=== PATIENT | female | born 1950 | race Caucasian/White ===

== ENCOUNTER 2024-02-02 05:55 | Emergency (ER) | payer MEDICARE, SELFPAY ==
--- NOTE | ~2024-02-02 | XR_ITS ---
EXAMINATION: XR lumbar spine 2-3V DATE: 02/02/2024 06:29 INDICATION: Low back pain. Fall. TECHNIQUE: 3 views of lumbar spine were obtained. COMPARISON: None. FINDINGS: There is 11 degrees dextroscoliosis of thoracolumbar spine. There is mild chronic anterior wedging of T11 and T12 vertebral bodies. There is severely decreased disc height at T11-T12, moderate ly decreased disc height at T12-L1, mildly decreased disc height at L1-L2, severely decreased disc he ight at L2-L3, moderately decreased disc height at L3-L4, and severely decreased disc height at L5-S1 . There is multilevel severe facet joint osteoarthritis. IMPRESSION: 1. Severe lumbar spondylosis. 2. Thoracolumbar dextroscoliosis. Reviewed, dictated and finalized at location A.
--- NOTE | ~2024-02-02 | XR_ITS ---
EXAMINATION: XR sacrum coccyx min 2V DATE: 02/02/2024 06:29 INDICATION: Tailbone pain. Low back pain. Fall. TECHNIQUE: 3 views of the sacrum and coccyx were obtained. COMPARISON: None. FINDINGS: Bone alignment is normal. No fracture. There is severe lumbar spondylosis. There is moderat e osteoarthritis of the heads. IMPRESSION: 1. No fracture. Reviewed, dictated and finalized at location A. IMPRESSION: 1. No fracture.
[2024-02-02 05:55] VITALS: BP 142/73; PULSE 110; RESP 18; O2SAT 95
[2024-02-02 05:58] VITALS: BP 142/73; PULSE 101; RESP 18; TEMP 37.1; O2SAT 96
--- NOTE | 2024-02-02 06:00 | ED.FALL ---
HPI - Fall General Chief Complaint: Fall Stated Complaint: fall Time Seen by Provider: 02/02/24 05:59 Source: patient Mode of arrival: EMS Limitations: no limitations History of Present Illness HPI Narrative: Patient is 73-year-old female with 0 ground level fall prior to arrival. She sustained a lower back pain and injury after the fall. This was a mechanical fall. She had no symptoms before or after the fall causing the fall or related to the fall. The only sustained injury is the lower back. She said her knees give out from time to time and cause this falling action. MD complaint: fall Onset (ago): hour(s) (1) Fall from: standing Fall witnessed: no Place fall occurred: home Loss of consciousness: none Prolonged down time: no Symptoms prior to fall: none Context: tripped/slipped Location of injury: back ( Lower back) Severity: mild Severity scale (1-10): 2 Quality: dull and throbbing Associated symptoms (after fall): denies Related Data Home Medications Medication Instructions Recorded Confirmed amlodipine 10 mg tablet (Norvasc) 10 mg PO DAILY 02/02/24 02/02/24 empagliflozin 10 mg tablet 10 mg PO DAILY 02/02/24 02/02/24 (Jardiance) glipizide 10 mg tablet, extended 20 mg PO DAILY 02/02/24 02/02/24 release 24 hr (Glucotrol XL) Allergies Allergy/AdvReac Type Severity Reaction Status Date / Time Sulfa (Sulfonamide Allergy Mild HIGH BLOOD Unverified 01/08/13 21:40 Antibiotics) [id number] Review of Systems Review of Systems: All systems reviewed & are unremarkable except as noted in HPI and below Constitutional: Constitutional: Reports no additional constitutional complaints Eyes: Eyes: Reports no additional eye complaints ENT: Reports system reviewed and no additional complaints, except as documented Cardiovascular: Cardiovascular: Reports no additional cardiovascular complaints Respiratory: Respiratory: Reports no additional respiratory complaints Gastrointestinal: Gastrointestinal: Reports no additional gastrointestinal complaints Genitourinary: Genitourinary: Reports no additional female genitourinary complaints Musculoskeletal: Musculoskeletal: Reports no additional musculoskeletal complaints Integumentary/Breasts: Skin/Breast: Reports system reviewed and no additional complaints, except as docu Neurologic: Reports system reviewed and no additional complaints, except as documented Psychiatric: Psychiatric: Reports no additional psychiatric complaints Endocrine: Endocrine: Reports no additional endocrine complaints Hematologic/Lymphatic: Hematologic/Lymphatic: Reports no additional hematologic/lymphatic complaints Allergic/Immunologic: Allergic/Immunologic: Reports no additional allergic/immunologic complaints Exam Const: General: healthy appearing Nutritional Appearance: well nourished Orientation/consciousness: patient oriented x3 HENMT: Head: normal to inspection Ears: external ears normal Face/Nose/Sinus: Normal external nose present Eyes: Conjunctivae: conjunctivae normal Pupils: Equal, round and reactive pupils present EOM: EOMs intact bilaterally Neck: Neck: normal visual inspection Chest: Chest palpation & inspection: normal inspection of the chest Resp: Effort & Inspection: normal respiratory effort and not labored Auscultation: clear to auscultation bilaterally Cardio: Rate: regular rate Rhythm: regular rhythm Heart sounds: no murmurs GI: Inspection: non-distended Auscultation: normal bowel sounds and bowel sounds present : General: Yes bladder normal to palpation Back/Spine/Pelvis: Back: no CVA tenderness Other: tender lumbosacral area midline Skin: General skin exam: normal color Rashes: no rashes Wounds: no wounds Neuro: General: patient oriented x3 Cranial nerves: Yes Nystagmus not present Speech: normal speech Extrem: General: normal to inspection Psych: Mental Status: mental status grossly normal Affect: adiel
--- NOTE | 2024-02-02 06:10 | PC.NURSE ---
patient being transported to radiology via stretcher
--- NOTE | 2024-02-02 06:26 | PC.NURSE ---
return from radiology via stretcher
--- NOTE | 2024-02-02 07:02 | PC.NURSE ---
report given to pradip hackett
[2024-02-02 07:10] VITALS: BP 132/49; PULSE 80; RESP 16; TEMP 37.2; O2SAT 96
--- NOTE | 2024-02-02 07:18 | PC.NURSE ---
Per patient request, patient's granddaughter Bree contacted to bring patient's walker and shoes for discharge.
[2024-02-02 07:25] VITALS: BP 132/49; PULSE 83; RESP 16; TEMP 37.2; O2SAT 96
== END 2024-02-02 07:25 | disposition home or self-care (01) ==
PROVIDERS: Emergency Provider Emergency Medicine
DX: M54.50 Low back pain, unspecified (principal); W19.XXXA Unspecified fall, initial encounter
CPT/HCPCS: 72100; 72220; 99283

== ENCOUNTER 2024-02-04 12:53 | Emergency (ER) | payer MEDICARE, SELFPAY ==
--- NOTE | ~2024-02-04 | XR_ITS ---
EXAMINATION: XR chest 1V portable DATE: 02/04/2024 13:13 INDICATION: Cough and congestion. TECHNIQUE: A single frontal view of the chest was obtained. COMPARISON: Chest 2 views 09/07/2014 FINDINGS: There is no pneumonia, pleural effusion, or pneumothorax. The heart size is normal. There i s plate and screw fixation of right humerus. IMPRESSION: 1. No acute cardiopulmonary disease. Reviewed, dictated and finalized at location E.
[2024-02-04 12:53] VITALS: BP 157/62; PULSE 99; RESP 20; TEMP 36.7; O2SAT 95
[2024-02-04 13:12] VITALS: O2SAT 94
[2024-02-04 13:43] LABS: SARS-CoV-2 RNA PCR Positive (Negative)
[2024-02-04 13:47] LABS: Influenza A QL RT-PCR Negative (Negative); Influenza B QL RT-PCR Negative (Negative); RSV RNA, RT-PCR Negative (Negative); Strep Group A RT-PCR NOT DETECTED (Negative)
--- NOTE | 2024-02-04 13:56 | ED.SOB ---
HPI - SOB/Dyspnea General Chief Complaint: Upper Respiratory Infection Stated Complaint: cough Time Seen by Provider: 02/04/24 13:00 Source: patient and family Mode of arrival: ambulatory Limitations: no limitations History of Present Illness HPI Narrative: this is a 73-year-old female who presents with cough and congestion O2 sats at 94% on room air mildly short of breath but no audible wheezing no fever chills no chest pain no nausea vomiting. MD elicited complaint: shortness of breath and cough Pertinent past history: COPD Onset (ago): day(s) Related Data Home Medications Medication Instructions Recorded Confirmed amlodipine 10 mg tablet (Norvasc) 10 mg PO DAILY 02/02/24 02/02/24 empagliflozin 10 mg tablet 10 mg PO DAILY 02/02/24 02/02/24 (Jardiance) glipizide 10 mg tablet, extended 20 mg PO DAILY 02/02/24 02/02/24 release 24 hr (Glucotrol XL) Allergies Allergy/AdvReac Type Severity Reaction Status Date / Time Sulfa (Sulfonamide Allergy Mild HIGH BLOOD Unverified 01/08/13 21:40 Antibiotics) [id number] Review of Systems Review of Systems: All systems reviewed & are unremarkable except as noted in HPI and below PMFSH Past Medical History Medical History COPD (chronic obstructive pulmonary disease) Exam Const: General: healthy appearing, no acute distress and alert Nutritional Appearance: well nourished Orientation/consciousness: patient oriented x3 Resp: Effort & Inspection: normal respiratory effort Auscultation: clear to auscultation bilaterally Cardio: Rate: regular rate Rhythm: regular rhythm GI: GI Palp: Yes Soft to palpation Auscultation: normal bowel sounds Skin: General skin exam: normal color Rashes: no rashes Neuro: General: patient oriented x3, moves all extremities and no meningeal signs Course Course Emergency Course: chest x-ray with no acute cardiopulmonary abnormalities, COVID is positive and will be sending medication to patient's pharmacy. Vital Signs Vital signs: Vital Signs Temperature 36.7 C 02/04/24 12:53 Pulse Rate 99 02/04/24 12:53 Respiratory Rate 20 02/04/24 12:53 Blood Pressure 157/62 H 02/04/24 12:53 Pulse Oximetry 95 02/04/24 12:53 Oxygen Delivery Room Air 02/04/24 12:53 Temperature 36.7 C 02/04/24 12:53 Pulse Rate 99 02/04/24 12:53 Respiratory Rate 20 02/04/24 12:53 Blood Pressure 157/62 H 02/04/24 12:53 Pulse Oximetry 94 02/04/24 13:12 Oxygen Delivery Room Air 02/04/24 13:12 MDM - SOB/Dyspnea Lab Data Labs: Lab Results 02/04/24 Range/Units 13:05 Influenza A (RT-PCR) Negative (Negative) Influenza B (RT-PCR) Negative (Negative) RSV (RT-PCR) Negative (Negative) SARS-CoV-2 RNA (RT-PCR) Positive A (Negative) Group A Strep (PCR) Not detected (Negative) Critical Care Time Critical Care Time Critical Care Time: No Discharge Plan Discharge Clinical Impression: COVID-19 Patient Disposition: Home, Self-Care Condition: Stable Instructions: Antibiotic Form, COVID-19 (Coronavirus Disease 2019) (ED) Additional Instructions: take medication as prescribed and follow with primary in 1 week for further evaluation and treatment. Prescriptions: New Paxlovid 300 mg (150 mg x 2)-100 mg tablets,dose pack See Rx Instructions .ROUTE .COMPLEX Qty: 30 0RF Rx Instructions: take TWO 150 mg tablets of nirmatrelvir with ONE 100 mg tablet of ritonavir twice daily for 5 days benzonatate 100 mg capsule 100 mg PO TID Qty: 20 0RF No Action glipizide [Glucotrol XL] 10 mg tablet extended release 24hr 20 mg PO DAILY amlodipine [Norvasc] 10 mg tablet 10 mg PO DAILY Jardiance 10 mg tablet 10 mg PO DAILY Follow-up/Referrals: Greg,MD Yennifer [Primary Care Provider] - Time of Disposition: 14:01
[2024-02-04 14:00] VITALS: BP 150/60; PULSE 84; RESP 18; O2SAT 97
== END 2024-02-04 14:26 | disposition home or self-care (01) ==
PROVIDERS: Emergency Provider Emergency Medicine; PCP Family Medicine
DX: U07.1 COVID-19 (principal); J44.9 Chronic obstructive pulmonary disease, unspecified; Z79.84 Long term (current) use of oral hypoglycemic drugs
CPT/HCPCS: 71045; 87637; 87651; 99283

== ENCOUNTER 2024-08-02 10:43 | Emergency (ER) | payer MEDICARE, SELFPAY ==
--- NOTE | ~2024-08-02 | XR_ITS ---
EXAMINATION: XR lumbar spine 2-3V, XR hip BI 2V w AP pelvis DATE: 08/02/2024 11:37 INDICATION: Low back pain radiating to the bilateral hips post fall TECHNIQUE: 1. Anteroposterior and lateral views of the lumbar spine, and cone-down lateral view of the lumbosacr al junction were obtained. 2. AP view of the pelvis and AP and frog-leg lateral views of both the left and right hips. COMPARISON: 02/02/2024 FINDINGS: Lumbar spine: 12 degrees lumbar dextroscoliosis. Sagittal alignment is normal. Chronic mild anterior wedging at T11 and T12. Severe disc height loss at T11-T12, L2-L3 and L5-S1; moderate disc height loss at T12-L1 an d L3-L4 and mild disc height loss at L1-L2. Multilevel moderate to severe lower lumbar predominant fa cet osteoarthritis. Atherosclerotic aorta and iliac arteries. Pelvis and bilateral hips: Alignment is normal. No fracture or suspected osteonecrosis. Mild bilateral hip and moderate bilater al sacroiliac osteoarthritis. IMPRESSION: 1. 12 degrees lumbar dextro scoliosis with severe spondylosis. 2. 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 No acute osseous abnormality. Reviewed, dictated and finalized at location A. [employer] IMPRESSION: 1. 12 degrees lumbar dextro scoliosis with severe spondylosis. 2. 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 No acut e osseous abnormality.
[2024-08-02 10:48] VITALS: BP 118/59; PULSE 87; RESP 20; TEMP 36.7; O2SAT 97
--- NOTE | 2024-08-02 10:59 | ED_ITS ---
HPI - Extremity Injury (Lower) General Chief Complaint: Extremity Injury, Lower Stated Complaint: hip pain, fall Time Seen by Provider: 08/02/24 10:59 Source: patient Mode of arrival: ambulatory Limitations: no limitations History of Present Illness HPI Narrative: 73-year-old female with a history of hypertension, dyslipidemia, diabetes mellitus had a fall 2 days ago and presents to the ED with -- low back pain. -- Bilateral hip pain subsequently the patient has been ambulatory. No other injuries noted. No bruising. No head injury. No ENT bleeding. MD complaint: hip injury and other ( Lower back pain) Onset (ago): day(s) ( 2 days ago) Injury: Left: hip Type of Injury: blunt Place: home Severity: moderate Relieving factors: nothing Exacerbating factors: movement Context: fall Other symptoms: none Related Data Home Medications Medication Instructions Recorded Confirmed amlodipine 10 mg tablet (Norvasc) 10 mg PO DAILY 02/02/24 08/02/24 empagliflozin 10 mg tablet 10 mg PO DAILY 02/02/24 08/02/24 (Jardiance) glipizide 10 mg tablet, extended 20 mg PO DAILY 02/02/24 08/02/24 release 24 hr (Glucotrol XL) alendronate 70 mg tablet 70 mg PO WEEKLY 08/02/24 08/02/24 lisinopril 40 mg tablet 40 mg PO DAILY 08/02/24 08/02/24 sertraline 100 mg tablet 100 mg PO DAILY 08/02/24 08/02/24 simvastatin 40 mg tablet 40 mg PO DAILY 08/02/24 08/02/24 Allergies Allergy/AdvReac Type Severity Reaction Status Date / Time Sulfa (Sulfonamide Allergy Mild HIGH BLOOD Unverified 08/02/24 10:50 Antibiotics) [id number] Review of Systems Review of Systems: All systems reviewed & are unremarkable except as noted in HPI and below Constitutional: Constitutional: Reports as per HPI and Reports no additional constitutional complaints Eyes: Eyes: Reports as per HPI and Reports no additional eye complaints Comments: recent right eye cataract surgery ENT: Reports system reviewed and no additional complaints, except as documented and Reports as per HPI Cardiovascular: Cardiovascular: Reports as per HPI and Reports no additional cardiovascular complaints Respiratory: Respiratory: Reports as per HPI and Reports no additional respiratory complaints Gastrointestinal: Gastrointestinal: Reports as per HPI and Reports no additional gastrointestinal complaints Genitourinary: Genitourinary: Reports no additional female genitourinary complaints and Reports as per HPI Musculoskeletal: Musculoskeletal: Reports no additional musculoskeletal complaints and Reports as per HPI Integumentary/Breasts: Skin/Breast: Reports system reviewed and no additional complaints, except as docu and Reports as per HPI Neurologic: Reports system reviewed and no additional complaints, except as documented and Reports as per HPI Psychiatric: Psychiatric: Reports no additional psychiatric complaints and Reports as per HPI Endocrine: Endocrine: Reports no additional endocrine complaints and Reports as per HPI Hematologic/Lymphatic: Hematologic/Lymphatic: Reports no additional hematologic/lymphatic complaints and Reports as per HPI Allergic/Immunologic: Allergic/Immunologic: Reports no additional allergic/immunologic complaints and Reports as per HPI [facility] Past Medical History Medical History COPD (chronic obstructive pulmonary disease) Diabetes mellitus Hypertension Exam Narrative: vitals are stable. Const: General: no acute distress Nutritional Appearance: well nourished Orientation/consciousness: patient oriented x3 Limitations: no limitations HENMT: Head: normal to inspection Ears: external ears normal Face/Nose/Sinus: Normal external nose present Face and sinus: normal facial exam Mouth: Yes Normal oral and palatal mucosa present Throat: posterior oropharynx normal Eyes: Conjunctivae: conjunctivae normal Pupils: Equal, round and reactive pupils present EOM: EOMs intact bilaterally Direct Ophthalmoscopy: no photophobia Neck: Neck: normal visual inspection, no lymphadenopathy and no meningeal signs Chest: Chest palpation & inspection: normal inspection of the chest Resp: Effort & Inspection: normal respiratory effort Auscultation: clear to auscultation bilaterally Cardio: Rate: regular rate Rhythm: regular rhythm GI: GI Palp: Yes Soft to palpation Other: No tenderness/rigidity / rebound. : General: Yes no CVA tenderness Back/Spine/Pelvis: Back: no CVA tenderness Other: No spinal tenderness noted Skin: General skin exam: normal color Rashes: no rashes Wounds: no wounds Neuro: General: patient oriented x3, moves all extremities, no meningeal signs, no focal motor deficits and CN's II-XI intact bilaterally Speech: normal speech Extrem: General: normal to inspection Other: she complains of hip pain with bilateral normal range of motion. Tenderness on palpation. Psych: Mental Status: mental status grossly normal Affect: normal affect Attitude: cooperative Course Course Emergency Course: Accidental fall low back pain -- x-ray of the lumbar spine reveal 12? dextroscoliosis of the lumbar spine with severe spondylosis. The patient is noted to have wedging of T11 and T12. Decrease of multiple discs. bilateral hip pain-- No fracture/ dislocation noted. Bilateral hip and sacroiliac joint osteoarthritis. Vital Signs Vital signs: Vital Signs Temperature 36.7 C 08/02/24 10:48 Pulse Rate 87 08/02/24 10:48 Respiratory Rate 20 08/02/24 10:48 Blood Pressure 118/59 L 08/02/24 10:48 Pulse Oximetry 97 08/02/24 10:48 Oxygen Delivery Room Air 08/02/24 10:48 Temperature 36.7 C 08/02/24 10:48 Pulse Rate 87 08/02/24 10:48 Respiratory Rate 20 08/02/24 10:48 Blood Pressure 118/59 L 08/02/24 10:48 Pulse Oximetry 97 08/02/24 10:48 Oxygen Delivery Room Air 08/02/24 10:48 MDM - Extremity Injury (Lower) MDM Narrative Medical decision making narrative: Accidental fall low back pain dextroscoliosis of the lumbar spine with severe spondylosis severe osteoarthritis of the bilateral hips and the sacroiliac joints Differential Diagnosis Differential diagnosis: Likely fracture of hip Discharge Plan Discharge Clinical Impression: Acute low back pain Qualifiers: Back pain laterality: bilateral Sciatica presence: without sciatica Qualified Code(s): M54.50 - Low back pain, unspecified Accidental fall Qualifiers: Encounter type: initial encounter Qualified Code(s): W19.XXXA - Unspecified fall, initial encounter Acute hip pain Qualifiers: Laterality: bilateral Qualified Code(s): M25.551 - Pain in right hip Patient Disposition: Home, Self-Care Condition: Stable Instructions: Antibiotic Form, Acute Low Back Pain (ED) Patient Language: [place] Prescriptions: No Action glipizide [Glucotrol XL] 10 mg tablet extended release 24hr 20 mg PO DAILY amlodipine [Norvasc] 10 mg tablet 10 mg PO DAILY Jardiance 10 mg tablet 10 mg PO DAILY alendronate 70 mg tablet 70 mg PO WEEKLY sertraline 100 mg tablet 100 mg PO DAILY simvastatin 40 mg tablet 40 mg PO DAILY lisinopril 40 mg tablet 40 mg PO DAILY Follow-up/Referrals: Greg,MD Yennifer [Primary Care Provider] - Time of Disposition: 12:28
[2024-08-02 12:45] VITALS: BP 144/82; PULSE 66; RESP 18; O2SAT 99
[2024-08-02 12:46] VITALS: BP 144/82; PULSE 66; RESP 18; TEMP 36.7; O2SAT 99
== END 2024-08-02 12:46 | disposition home or self-care (01) ==
PROVIDERS: Emergency Provider Internal Medicine Critical Care Medicine; PCP Family Medicine
DX: M54.50 Low back pain, unspecified (principal); M25.551 Pain in right hip; I10 Essential (primary) hypertension; E78.5 Hyperlipidemia, unspecified; E11.9 Type 2 diabetes mellitus without complications; J44.9 Chronic obstructive pulmonary disease, unspecified; Z79.899 Other long term (current) drug therapy; W19.XXXA Unspecified fall, initial encounter
CPT/HCPCS: 72100; 73521; 99284

== ENCOUNTER 2024-08-06 09:48 | Emergency (ER) | payer MEDICARE, SELFPAY ==
[2024-08-06] VITALS (10 sets, daily range): BP systolic 99–148; BP diastolic 55–89; PULSE 67–85; RESP 16–18; TEMP 36.8–37.2; O2SAT 95–97
--- NOTE | ~2024-08-06 | CT_ITS ---
CT abdomen pelvis w con Ordering provider: Rik Isaacs MD History: 73 years Female with . hepatitis, pancreatitis,LBP . Comparison: None. Technique: CT abdomen and pelvis with IV and without oral contrast. Automated exposure control and it erative reconstruction technique were employed. The dose-length product was 955.70 mGy-cm. 100 mL Omn ipaque 350 was given IV. Findings: VISUALIZED LOWER CHEST: Normal. UPPER ABDOMINAL ORGANS: Liver: Fat infiltration.. Gallbladder: Distended with thickened wall which may indicate cholecystitis. No stones seen. Spleen: Normal. Stomach/duodenum: Normal. Pancreas: Normal. Adrenals: Normal. Kidneys: Tiny cysts in the right kidney upper and lower pole. 1.5 cm isodense area seen in the left kidney mid pole which may be normal tissue but follow-up advise d. PELVIC ORGANS: The bladder is normal. Uterus: Normal. Density is seen adjacent to the right ovary wh ich may be hemorrhagic cyst. BOWEL AND MESENTERY: Colon: No evidence of diverticulitis. Normal appendix. Small Bowel: Normal. No obstruction. Peritoneum/mesentery: No free air or free fluid. No mesenteric lymphadenopathy. RETROPERITONEUM: Mild atheromatous disease of the abdominal aorta. No retroperitoneal lymphadenopat hy. MUSCULOSKELETAL: Superficial soft tissues: A small fat-containing umbilical hernia. Otherwise, The superficial soft ti ssues are normal. Bones: Age appropriate degenerative changes of the spine. Sclerotic area in the right pubic bone. Hyp odensity areas seen in the L3 and L1 vertebra. Smaller lesions are also seen in L2 and L4.. Follow-up advised. Hemangioma is seen in T12. IMPRESSION: 1. Mild fat infiltration 2. Distended gallbladder with thickened wall. Cholecystitis is not excluded. Clinical correlation ad vised. 3. Possible lesion in the left kidney although most likely normal kidney tissue. Follow-up advised. 4. Hyperdense lesion seen in the right adnexal area which may be hemorrhagic cyst in the ovary. 5. Multiple hypodensities in the vertebrae. Further evaluation advised. Sclerotic lesion also seen i n the right pubic bone. Further evaluation and follow-up advised Reviewed, dictated and finalized at location A. [facility] [employer] IMPRESSION: 1. Mild fat infiltration 2. Distended gallbladder with thickened wall. Cholecystitis is not excluded. C linical correlation advised. 3. Possible lesion in the left kidney although most likely normal kidney tissu e. Follow-up advised. 4. Hyperdense lesion seen in the right adnexal area which may be hemorrhagic c yst in the ovary. 5. Multiple hypodensities in the vertebrae. Further evaluation advised. Sclero tic lesion also seen in the right pubic bone. Further evaluation and follow-up advised
--- NOTE | 2024-08-06 10:15 | ED.ABDPAIN ---
HPI - Abdominal Pain General Chief Complaint: Extremity Injury, Lower Stated Complaint: fall /hip pain Source: patient and EMS Mode of arrival: ambulatory Limitations: no limitations History of Present Illness HPI narrative: 73-year-old female with a history of hypertension, diabetes mellitus, dyslipidemia, COPD presents to the ED with a 1 day history of -- epigastric/right hypochondrium. Pain has been continuous. No exacerbating or relieving factors. No fever or chills. No nausea/ vomiting feet a tree complaint of diarrhea. She was seen in the ED on 08/02/2024 after a fall with hip pain. 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 MD elicited complaint: abdominal pain Onset (ago): day(s) ( One day) Pain Consistency: constant Location: epigastric and RUQ Severity: moderate Quality: aching Radiation: none Migration to: no migration Exacerbating factors: nothing Relieving factors: nothing Associated symptoms: denies other symptoms Related Data Home Medications Medication Instructions Recorded Confirmed amlodipine 10 mg tablet (Norvasc) 10 mg PO DAILY 02/02/24 08/06/24 empagliflozin 10 mg tablet 10 mg PO DAILY 02/02/24 08/06/24 (Jardiance) glipizide 10 mg tablet, extended 20 mg PO DAILY 02/02/24 08/06/24 release 24 hr (Glucotrol XL) alendronate 70 mg tablet 70 mg PO WEEKLY 08/02/24 08/06/24 lisinopril 40 mg tablet 40 mg PO DAILY 08/02/24 08/06/24 sertraline 100 mg tablet 100 mg PO DAILY 08/02/24 08/06/24 simvastatin 40 mg tablet 40 mg PO DAILY 08/02/24 08/06/24 Allergies Allergy/AdvReac Type Severity Reaction Status Date / Time Sulfa (Sulfonamide Allergy Mild HIGH BLOOD Unverified 08/06/24 09:59 Antibiotics) [id number] Review of Systems Review of Systems: All systems reviewed & are unremarkable except as noted in HPI and below Constitutional: Constitutional: Reports as per HPI and Reports no additional constitutional complaints Eyes: Eyes: Reports as per HPI and Reports no additional eye complaints ENT: Reports system reviewed and no additional complaints, except as documented and Reports as per HPI Cardiovascular: Cardiovascular: Reports as per HPI and Reports no additional cardiovascular complaints Respiratory: Respiratory: Reports as per HPI and Reports no additional respiratory complaints Gastrointestinal: Gastrointestinal: Reports as per HPI, Reports abdominal pain and Reports diarrhea Genitourinary: Genitourinary: Reports no additional female genitourinary complaints Musculoskeletal: Musculoskeletal: Reports no additional musculoskeletal complaints, Reports as per HPI and Reports arthralgias Integumentary/Breasts: Skin/Breast: Reports system reviewed and no additional complaints, except as docu and Reports as per HPI Neurologic: Reports system reviewed and no additional complaints, except as documented and Reports as per HPI Psychiatric: Psychiatric: Reports no additional psychiatric complaints and Reports as per HPI Endocrine: Endocrine: Reports no additional endocrine complaints and Reports as per HPI Hematologic/Lymphatic: Hematologic/Lymphatic: Reports no additional hematologic/lymphatic complaints and Reports as per HPI Allergic/Immunologic: Allergic/Immunologic: Reports no additional allergic/immunologic complaints and Reports as per HPI [facility] Past Medical History Medical History (Updated 08/06/24 @ 13:40 by Rik Isaacs MD) Arthritis COPD (chronic obstructive pulmonary disease) Diabetes mellitus Hypertension Exam Narrative: vitals are stable. Patient is afebrile P Const: General: healthy appearing and no acute distress Nutritional Appearance: well nourished Orientation/consciousness: patient oriented x3 Limitations: no limitations HENMT: Head: normal to inspection Ears: external ears normal Face/Nose/Sinus: Normal external nose present Face and sinus: normal facial exam Mouth: Yes Normal oral and palatal mucosa present Throat: posterior oropharynx normal Eyes: Conjunctivae: conjunctivae normal Pupils: Equal, round and reactive pupils present EOM: EOMs intact bilaterally Direct Ophthalmoscopy: no photophobia Neck: Neck: normal visual inspection, no lymphadenopathy and no meningeal signs Chest: Chest palpation & inspection: normal inspection of the chest Resp: Effort & Inspection: normal respiratory effort Auscultation: clear to auscultation bilaterally Cardio: Rate: regular rate Rhythm: regular rhythm GI: GI Palp: Yes Soft to palpation Auscultation: normal bowel sounds Other: tenderness in the epigastrium and right upper quadrant of the abdomen. : General: Yes no CVA tenderness Urinary Catheter: Urinary Catheter: patent and draining Back/Spine/Pelvis: Back: no CVA tenderness Skin: General skin exam: normal color Rashes: no rashes Wounds: no wounds Neuro: General: patient oriented x3, moves all extremities, no meningeal signs, no focal motor deficits and CN's II-XI intact bilaterally Cranial nerves: Yes Nystagmus not present Speech: normal speech Extrem: General: normal to inspection, no clubbing, cyanosis or edema and no pedal edema Psych: Mental Status: mental status grossly normal Affect: normal affect Attitude: cooperative Course Course Emergency Course: Abdominal pain-- epigastrium and right upper quadrant right adnexa, multiple hypodensities CT revealed a fat containing umbilical hernia, gallbladder distension with thickening of the estrada, hyperdense lesion in the vertebrae. Patient is noted to have a normal white cell count, normal lactate and afebrile. The patient does not have a toxic look suggestive of acute cholecystitis. Elevated LFTs including elevated alkaline phosphate. the patient could have passed gallstone which accounts for elevated LFTs and elevated lipase, even though the patient does not have a distended CBD. discussed with general surgeon at [facility] Dr. Razo who based on findings does not feel that the patient has acute cholecystitis. The CT does not show evidence of acute pancreatitis. The patient has multiple hypodense lesions in the bone and needs a workup for possible metastatic disease. The patient has a hypodense lesion in the right adnexa is suggestive of a hemorrhagic cyst. Currently the patient does not have any pelvic pain. Vital Signs Vital signs: Vital Signs Temperature 37.2 C 08/06/24 09:55 Pulse Rate 85 08/06/24 09:55 Respiratory Rate 18 08/06/24 09:55 Blood Pressure 136/55 L 08/06/24 09:55 Pulse Oximetry 96 08/06/24 09:55 Oxygen Delivery Room Air 08/06/24 09:55 Temperature 37.2 C 08/06/24 09:55 Pulse Rate 85 08/06/24 09:55 Respiratory Rate 18 08/06/24 09:55 Blood Pressure 136/55 L 08/06/24 09:55 Pulse Oximetry 96 08/06/24 09:55 Oxygen Delivery Room Air 08/06/24 09:55 MDM - Abdominal Pain MDM Narrative Medical decision making narrative: Abdominal pain Gallbladder distension elevated lipase. CT does not show any abnormality of the pancreas. Differential Diagnosis Differential diagnosis: Likely calculus of kidney, pancreatitis and small bowel obstruction Medical Records Attestation: I reviewed the patient's medical records. Lab Data Attestation: I reviewed the patient's lab results. 08/06/24 10:40 08/06/24 10:40 Labs: Lab Results 08/06/24 Range/Units 10:40 WBC 8.5 (4.8-10.8) K/mm3 RBC 4.10 L (4.20-5.40) M/mm3 Hgb 11.9 (11.7-13.8) g/dL Hct 37.0 (35.0-42.0) % MCV 90.2 (78.0-102.0) fL MCH 29.0 (27.0-31.0) pg MCHC 32.2 (32-36) g/dL RDW 13.2 (11.6-14.4) % Plt Count 164 (150-420) K/mm3 MPV 12.3 H (9.2-11.8) fl Immature Gran % (Auto) 0.2 H (0.0-0.0) % Neut % (Auto) 85.6 H (50.0-70.0) % Lymph % (Auto) 6.0 L (18.0-42.0) % [place] % (Auto) 7.2 (2.0-11.0) % Eos % (Auto) 0.5 L (1.0-6.0) % Baso % (Auto) 0.5 (0.0-1.0) % Lymph # (Auto) 0.51 L (1.10-4.50) K/mm3 [place] # (Auto) 0.61 (0.10-0.90) K/mm3 Eos # (Auto) 0.04 (0.02-0.50) K/mm3 Baso # (Auto) 0.04 (0.00-0.10) K/mm3 Abs Immat Gran (auto) 0.02 H (0.00-0.00) K/mm3 Absolute Neuts (auto) 7.23 H (1.70-7.20) K/mm3 Absolute Nucleated RBC 0.00 (0.00-0.00) K/mm3 Nucleated RBC % 0.0 (0-0.0) % PT 10.8 (9.50-12.1) Seconds INR 1.0 Sodium 140 (136-145) mmol/L Potassium 4.0 (3.5-5.1) mmol/L Chloride 106 (98-108) mmol/L Carbon Dioxide 26 (21-32) mmol/L Anion Gap 8 (4-12) mmol/L BUN 20 H (7-18) mg/dL Creatinine 1.06 H (0.55-1.02) mg/dL Estim Creat Clear Calc 52 ml/min Estimated GFR 51 L (59 - ) Glucose 204 H (70-99) mg/dL Calculated Osmolality 298 H (285-295) mOsm/kg Lactic Acid 0.9 (0.4-2.0) mmol/L Calcium 8.6 (8.5-10.1) mg/dL Total Bilirubin 0.7 (0.00-1.00) mg/dL AST 420 H (15-37) U/L ALT 291 H (14-59) U/L Alkaline Phosphatase 261 H (46-116) U/L Troponin I 5.0 (0.00-60.4) ng/L Total Protein 6.2 L (6.4-8.2) g/dL Albumin 2.8 L (3.4-5.0) g/dL Lipase 757 H (16-77) U/L Imaging Data Radiologist's impression: ITS Impressions Abdomen/Pelvis CT 08/06/24 12:51 IMPRESSION: 1. Mild fat infiltration 2. Distended gallbladder with thickened wall. Cholecystitis is not excluded. Clinical correlation advised. 3. Possible lesion in the left kidney although most likely normal kidney tissue. Follow-up advised. 4. Hyperdense lesion seen in the right adnexal area which may be hemorrhagic cyst in the ovary. 5. Multiple hypodensities in the vertebrae. Further evaluation advised. Sclerotic lesion also seen in the right pubic bone. Further evaluation and follow-up advised Discharge Plan Discharge Clinical Impression: Bone lesion, Gallbladder attack Abdominal pain Qualifiers: Abdominal location: right upper quadrant Qualified Code(s): R10.11 - Right upper quadrant pain Hyperglycemia due to type 2 diabetes mellitus Qualifiers: Diabetes mellitus manager intermediate insulin use: without intermediate use Qualified Code(s): E11.65 - Type 2 diabetes mellitus with hyperglycemia Patient Disposition: Home, Self-Care Condition: Stable Instructions: Antibiotic Form, Biliary Colic (ED), Bone Metastasis (ED) Additional Instructions: follow-up with oncology Patient Language: Martiniquais Prescriptions: No Action glipizide [Glucotrol XL] 10 mg tablet extended release 24hr 20 mg PO DAILY amlodipine [Norvasc] 10 mg tablet 10 mg PO DAILY Jardiance 10 mg tablet 10 mg PO DAILY alendronate 70 mg tablet 70 mg PO WEEKLY sertraline 100 mg tablet 100 mg PO DAILY simvastatin 40 mg tablet 40 mg PO DAILY lisinopril 40 mg tablet 40 mg PO DAILY Follow-up/Referrals: UNKNOWN,DOCTOR [Primary Care Provider] - Time of Disposition: 13:40
[2024-08-06 10:54] LABS: Basophils Absolute Auto 0.04 K/mm3 (0.00-0.10); Basophils Percent Auto 0.5 % (0.0-1.0); Eosinophils Absolute Auto 0.04 K/mm3 (0.02-0.50); Eosinophils Percent Auto 0.5 % (1.0-6.0); Hemoglobin 11.9 g/dL (11.7-13.8); Immature Granulocyte Absolute 0.02 K/mm3 (0.00-0.00); Immature Granulocyte Percent A 0.2 % (0.0-0.0); Lymphocytes Absolute Auto 0.51 K/mm3 (1.10-4.50); Mean Corpuscular HGB Conc 32.2 g/dL (32-36); Mean Corpuscular Volume 90.2 fL (78.0-102.0); Mean Platelet Volume 12.3 fl (9.2-11.8); Monocytes Absolute Auto 0.61 K/mm3 (0.10-0.90); Monocytes Percent Auto 7.2 % (2.0-11.0); Neutrophils Absolute Auto 7.23 K/mm3 (1.70-7.20); Neutrophils Percent Auto 85.6 % (50.0-70.0); Platelet Count Result 164 K/mm3 (150-420); Red Cell Distribution Width 13.2 % (11.6-14.4); White Blood Count 8.5 K/mm3 (4.8-10.8)
[2024-08-06 11:12] LABS: Lactic Acid Reflex 0.9 mmol/L (0.4-2.0)
[2024-08-06 11:19] LABS: Prothrombin Time 10.8 Seconds (9.50-12.1)
[2024-08-06 11:21] LABS: Alanine Aminotransferase 291 U/L (14-59); Albumin Level 2.8 g/dL (3.4-5.0); Alkaline Phosphatase 261 U/L (46-116); Anion Gap 8 mmol/L (4-12); Aspartate Amino Transferase 420 U/L (15-37); Bilirubin,Total 0.7 mg/dL (0.00-1.00); Blood Urea Nitrogen 20 mg/dL (7-18); Calcium 8.6 mg/dL (8.5-10.1); Carbon Dioxide 26 mmol/L (21-32); Chloride 106 mmol/L (98-108); Estimated CRCL calculation 52 ml/min; Estimated Glomerular Filt Rate 51; Glucose 204 mg/dL (70-99); Osmolality Calculated 298 mOsm/kg (285-295); Sodium 140 mmol/L (136-145); Total Protein 6.2 g/dL (6.4-8.2)
[2024-08-06 11:33] LABS: Lipase 757 U/L (16-77)
--- NOTE | 2024-08-06 11:52 | PC.NURSE ---
Patient provided diet soda and crackers per ERP approval.
[2024-08-06] MEDS: LACTATED RINGERS 1,000 ML 999 ML IV CONT (12:32)
== END 2024-08-06 13:58 | disposition home or self-care (01) ==
PROVIDERS: Emergency Provider Internal Medicine Critical Care Medicine
DX: M89.9 Disorder of bone, unspecified (principal); K82.9 Disease of gallbladder, unspecified; E11.65 Type 2 diabetes mellitus with hyperglycemia; J44.9 Chronic obstructive pulmonary disease, unspecified; I10 Essential (primary) hypertension; Z79.899 Other long term (current) drug therapy
CPT/HCPCS: 36415; 74177; 80053; 83605; 83690; 84484; 85025; 85610; 96360; 99284; J7120; Q9967